=== PATIENT | male | born 1970 | race Caucasian/White ===

== ENCOUNTER 2019-08-31 11:17 | Outpatient (CLI) | payer MEDICARE ==
[~2019-08-31] VITALS: Ht 185.4 cm; Wt 111.8 kg
--- NOTE | ~2019-08-31 | HEMODYNAMI ---
PATIENT:CESAR RETANA MEDICAL RECORD: [id number] : 72 LOCATION:[facility] ADMISSION DATE: 08/31/19 Generatedon:08/31/201916:11 Patient name: CESAR RETANA Patient #: [id number] SSN: [id number] : 1970 Date of study: 08/31/2019 Page: Of Hemodynamic Procedure Report Patient Data Patient Demographics Procedure consent was obtained First Name: CESAR Gender: Male Last Name: MAZIN : 1970 Patient #: [id number] Age: 49 year(s) Race: Unknown SSN: [id number] Additional ID: [id number] Contact details Address: [address] [place] [address] [place] State: [place] City: [place] Zip code: [address] Past Medical History Allergies: No known allergies Admission Admission Data Admission Date: 08/31/2019 Admission Time: 11:17 Admit Source: Other Height (in.): 72 BSA: 2.34 (m2) Height (cm.): 182.88 BMI: 33.91 (kg/m2) Weight (lbs.): 250 Weight (kg.): 113.4 Lab Results Lab Result Date: 08/31/2019 Lab Result Time: 0:00 Biochemistry Name Units Result Min Max BUN mg/dl 10 --(-*--)-- 7 18 Creatinine mg/dl 1 --(--*-)-- 0.6 1.3 CBC Name Units Result Min Max Hemoglobin g/dl 16.1 --(--*-)-- 13.5 17.5 Procedure Procedure Types Cath Procedure Diagnostic Procedure C [facility] w/Coronaries Sedation Charges Moderate Sedation up to 15 minutes Procedure Description Procedure Date Procedure Date: 08/31/2019 Procedure Start Time: 15:48 Procedure End Time: 16:09 Procedure Staff Name Function Shade Bo MD Performing Physician Tessa Cabello RT Monitor April Arnold RN Nurse Yancy Hodge RT Scrub Procedure Data Cath Procedure Fluoroscopy Diagnostic fluoroscopy Total fluoroscopy Time: 7.3 time: 7.3 min min Diagnostic fluoroscopy Total fluoroscopy dose: dose: 1010 mGy 1010 mGy Contrast Material Contrast Material Type Amount (ml) Isovue 300 94 Entry Location Entry Primary Successful Side Size Upsize Upsize Entry Closure Carroll ccessful Closure Location (Fr) 1 (Fr) 2 (Fr) Remarks Device Remarks Radial Right 6 Fr Mechanical artery Short Compression Estimated blood loss: 5 ml Diagnostic catheters Device Type Used For End Catheter Placement DIAGNOSTIC Thatcher 110cm 5 Procedure Fr catheter ([id number]) DIAGNOSTIC Checo 110cm 5Fr catheter ([id number]) Procedure Complications No complications Procedure Medications Medication Administration Route Dosage 0.9% NaCl I.V. 100 ml/hr Oxygen etCO2 Nasal cannula 2 l/min Lidocaine 2% added to field 20 Heparin Flush Bag added to field 2 bags (1000units/500ml NS) Radial Cocktail added to field 1 syringe (Verapamil 2mg/Nitro 400mcg/Heparin 1500units) Versed I.V. 2 mg Fentanyl I.V. 100 mcg Versed I.V. 2 mg Hemodynamics Rest BSA: 2.34 (m2) O2 Consumption: Estimated: 291.06 (ml/min) O2 Consumption indexed : Estimated:124.38 (ml/min/m) Heart Rate: 81 (bpm) Pressure Samples Time Site Value (mmHg) Purpose Heart Use Rate(bpm) 15:53 LV 126/-6,6 Snapshot 81 15:54 LV 119/28,22 Snapshot 86 Gradients Valve Time Site Site Mean SEP/DFP Peak To Heart Use 1 2 (mmHg) (sec/min) Peak Rate (mmHg) (bpm) Aortic 15:54 LV AO 89 Snapshots Pre Cath Intra NCS Post Cath Vital Signs Time Heart Resp SPO2 etCO2 NIBP (mmHg) Rhythm Pain Sedation Rate (ipm) (%) (mmHg) Status Level (bpm) 15:35:02 77 12 98 12 129/87(104) NSR 0 (11) 10(A) , No pain 15:39:10 76 16 96 27.8 127/90(108) NSR 0 (11) 10(A) , No pain 15:43:20 79 17 98 19 123/80(95) NSR 0 (11) 10(A) , No pain 15:47:25 75 14 97 32.3 123/86(99) NSR 0 (11) 10(A) , No pain 15:51:37 85 16 98 24.8 114/75(97) NSR 0 (11) 10(A) , No pain 15:55:45 79 15 98 32.3 123/71(89) NSR 0 (11) 9(A) , No pain 15:59:53 82 17 97 21 113/77(97) NSR 0 (11) 9(A) , No pain 16:04:01 78 15 97 33.1 118/68(90) NSR 0 (11) 10(A) , No pain 16:08:07 76 15 91 30.8 122/78(97) NSR 0 (11) 10(A) , No pain Medications Time Medication Route Dose Verified Delivered Reason Notes E ffectiveness by by 15:34:10 0.9% NaCl I.V. 100 [place]ade April used for ml/hr Anupam Arnold head grinder 15:34:16 Oxygen etCO2 2 l/min Shade April used for Nasal Anupam Arnold procedure cannula RN 15:34:21 Lidocaine 2% added 20ml [place] for local to vial Anupam oB MD anesthetic field 15:34:26 Heparin Flush added 2 bags [place] used for Bag to Anupam Bo MD procedure (1000units/500ml field NS) 15:34:31 Radial Cocktail added 1 [place] used for (Verapamil to syringe Anupam Bo MD procedure 2mg/Nitro field 400mcg/Heparin 1500units) 15:47:13 Versed I.V. 2 mg [place] for Anupam Arnold sedation RN 15:47:27 Fentanyl I.V. 100 mcg [place] for Anupam Arnold sedation RN 15:52:24 Versed I.V. 2 mg [place] for Anupam Arnold sedation director of employer services Log Time Note 15:25:48 Informed consent obtained and on chart 15:26:58 Admit Source: Other 15:27:05 Patient Height : 72 inches 15:27:11 Patient Weight : 250 lbs 15:28:23 Lab Result : Creatinine 1 mg/dl 15:28:23 Lab Result : BUN 10 mg/dl 15:28:23 Lab Result : Hemoglobin 16.1 g/dl 15:29:18 Procedure Status Elective Heart Cath (OP). 15:29:21 April Arnold RN sent for patient. Start room use. 15:29:36 Time tracking: Regular hours (M-F 7:00 - 5:00) 15:29:41 Plan of Care:Hemodynamics will remain stable., Cardiac rhythm will remain stable., Comfort level will be maintained., Respiratory function will remain adequate., Patient/ family verbilizes understanding of procedure., Procedure tolerated without complication., Recovers from procedure without complications.. 15:29:46 Patient received from Pre/Post Procedure Room to CCL 2 Alert and oriented. Tansferred to table in Supine position. 15:29:48 Warm blankets applied, and saba hugger turned on for patient comfort. 15:29:49 Correct patient and procedure confirmed by team. 15:29:50 ECG and BP/O2 sat monitors applied to patient. 15:30:35 H&P Date Dictated: 08/02/2019 Within 30 days and on chart., H&P Addendum completed by physician on day of procedure. (MUST COMPLETE FOR ALL OUTPATIENTS). 15:30:38 Family in waiting room. 15:30:39 Patient NPO since Midnight. 15:30:46 Patient allergic to No known allergies 15:30:50 Is the patient allergic to Iodine/contrast media? No. 15:30:54 Was the patient premedicated? Yes 15:30:56 Is patient on blood thinner?No 15:31:01 Patient diabetic? No. 15:31:08 Snore? Yes 15:31:09 Sleep apnea? Yes 15:31:17 Dentures? No ? 15:31:35 Patient pain scale 0/10 ?. 15:31:45 IV patent on arrival in left forearm with 0.9% NaCl at KVO. 15:31:51 Lab results completed and on chart. 15:31:55 Right groin area was prepped with chlora-prep and draped in sterile fashion 15:31:56 Alarms reviewed by R. N. 15:31:57 Sharps counted by scrub and verified by R.N. 15:31:58 Physician paged 15:33:59 Vital chart was started 15:34:10 0.9% NaCl 100 ml/hr I.V. was administered by April Clayton RN; used for procedure; Verbal order read back and verified. 15:34:16 Oxygen 2 l/min etCO2 Nasal cannula was administered by April Arnold RN; used for procedure; Verbal order read back and verified. 15:34:21 Lidocaine 2% 20ml vial added to field was administered by Shade Bo MD; for local anesthetic; Verbal order read back and verified. 15:34:26 Heparin Flush Bag (1000units/500ml NS) 2 bags added to field was administered by Shade Bo MD; used for procedure; Verbal order read back and verified. 15:34:31 Radial Cocktail (Verapamil 2mg/Nitro 400mcg/Heparin 1500units) 1 syringe added to field was administered by Shade Bo MD; used for procedure; Verbal order read back and verified. 15:42:33 Physician arrived 15:42:33 --------ALL STOP TIME OUT------ 15:46:38 Final Timeout: patient, procedure, and site verified with staff and physician. All members of the team are in agreement. 15:46:40 Right Radial & Right Groin site verified by team. 15:46:44 Fire Safety Assessment: A--An alcohol-based skin anteseptic being used preoperatively., C--Open oxygen or nitrous oxide is being used., D--An ESU, laser, or fiber-optic light is being used. 15:46:48 Physical assessment completed. ASA score P 3 - A patient with severe systemic disease as per Shade Bo MD. 15:47:00 2) 60-89 Mildly reduced kidney function, and other findings (as for stage 1) point to kidney disease. 15:47:13 Versed 2 mg I.V. was administered by April Arnold RN; for sedation; Verbal order read back and verified. 15:47:27 Fentanyl 100 mcg I.V. was administered by April Arnold RN; for sedation; Verbal order read back and verified. 15:47:32 Maximum allowable contrast dose (3.7 X eGFR X 0.75)235 ml. 15:47:37 Sedation plan: IV Moderate Sedation Medication:Versed, Fentanyl 15:47:41 Procedure started. 15:47:42 Full Disclosure recording started 15:48:31 Local anesthetic to right radial artery with Lidocaine 2% by Shade Bo MD.INITIAL ACCESS ONLY 15:50:29 A 6 Fr Short sheath was inserted into the Right Radial artery 15:51:19 Use device set Radial Dx or PCI 15:51:22 Medline Cath Pack ([id number]) opened to sterile field. 15:51:23 Bag Decanter (2002) opened to sterile field. 15:51:23 ACIST Hand Control (98691) opened to sterile field. 15:51:28 A DIAGNOSTIC Thatcher 110cm 5 Fr catheter (108151) was advanced over the wire and used for Procedure. 15:51:32 ACIST Syringe (26423) opened to sterile field. 15:51:32 ACIST Manifold (83853) opened to sterile field. 15:51:35 Tegaderm 4 x 4 (1626W) opened to sterile field. 15:51:36 MBrace Wrist Support ([id number]) opened to sterile field. 15:51:37 NEEDLE Cook 21G 4cm Radial (G51167) opened to sterile field. 15:51:40 EMERAircraft Logs Guide Wire (964-811) opened to sterile field. 15:51:43 SHEATH 6FR RAIN (3969165) opened to sterile field. 15:51:51 LV angiography performed. 15:52:24 Versed 2 mg I.V. was administered by April Arnold RN; for sedation; Verbal order read back and verified. 15:54:07 EF : 55 % 15:56:10 A DIAGNOSTIC Checo 110cm 5Fr catheter (340878) was advanced over the wire and used for . 15:58:21 RCA angiography performed. 15:58:32 ACCDominant side:Left 16:00:20 Catheter removed. 16:00:29 GUIDE 5FR EBU 3.5 catheter ([id number]) opened to sterile field. 16:00:35 LCA angiography performed. 16:05:34 Catheter removed. 16:06:24 ZEPHYR REGULAR TR BAND (504790) opened to sterile field. 16:06:39 Sheath removed intact; hemostasis achieved with Mechanical Compression to the Right Radial artery. 16:06:42 Procedure ended.(Physican Out) 16:07:09 Fluoroscopy time 07.30 minutes. 16:07:13 Fluoroscopy dose: 1010 mGy 16:07:13 Flurop Dose total: 1010 16:07:19 Dose Area Product 59270 mGy/cm. 16:07:24 Contrast amount:Isovue 300 94ml. 16:07:27 Maximum allowable dose exceeded? No. 16:07:28 Sharps counted by scrub and verified by R.N. 16:07:33 Monument band inflated with 8cc of air. 16:07:38 Post-op/insertion site Right Radial artery dressed using a 4 x 4 and Tegaderm. 16:08:10 Post Procedure Pulses reassessed and unchanged 16:08:20 Post-procedure physical assessment completed. ASA score P 2 - A patient with mild systemic disease as per Shade Bo MD. 16:08:23 Post procedure rhythm: unchanged. 16:08:26 Estimated blood loss: 5 ml 16:08:28 Post procedure instruction explained to patient.Patient verbalizes understanding. 16:08:39 Procedure type changed to Cath procedure, Diagnostic procedure, LHC, LHC w/Coronaries, Sedation Charges, Moderate Sedation up to 15 minutes 16:08:42 Procedure and supply charges have been captured, reviewed, submitted and are correct. 16:08:48 Procedure Complication : No complications 16:08:53 Vital chart was stopped 16:09:30 [facility] Findings: mild to moderate CAD (<70%) 16:09:33 Operative report dictated upon procedure completion. 16:09:33 See physician's report for complete and final results. 16:09:36 Report given to Pre/Post Procedure Room. 16:09:41 Patient transfered to Pre/Post Procedure Room with Stretcher. 16:09:43 Procedure ended. 16:09:43 Full Disclosure recording stopped 16:09:50 End room use (Document Last) 16:10:06 End room use (Document Last) 16:10:39 End room use (Document Last) Device Usage Item Name Manufacture Quantity Catalog Hospital Part Current Minima l Lot# / Number Charge Number Stock Stock Serial# Code Medline Medline 1 [id number] 51332 103025 5 Cath Pack ([id number]) Bag Microtek 1 344662 88171 272316 5 DecDolphin [employer] Inc. () ACIST Hand Acist 1 89390 202287 429327 210835 5 [facility] (64791) Systems Inc DIAGNOSTIC Terumo 2 20-3125 428992 880002 899536 5 Checo 110cm 5Fr catheter (944706) ACIST Acist 1 81594 934019 436117 360633 20 Syringe Medical (06695) Systems Inc ACIST Acist 1 40031 071843 476010 614754 5 Manifold Medical (78829) Systems Inc Tegaderm 4 3M 1 1626W 793668 055046 706271 5 x 4 (1626W) MBrace Advanced 1 140-0250-00 106838 55057 851627 5 Wrist Vascular Support Dynamics ([id number]) NEEDLE Cook Cook Medical 1 [id number] 717210 737220 953227 5 21G 4cm Radial (L87255) EMERALD Cardinal 1 772-388 569289 755920 292777 5 Guide [facility] (543-894) SHEATH 6FR Cardinal 1 [id number] 757770 8582521 033323 5 [facility] (6592420) DIAGNOSTIC Terumo 2 40-2153 348450 456801 843189 5 Thatcher 110cm 5 Fr catheter (576183) GUIDE 5FR Medtronic 1 [id number] 981077 936813 339542 1 EBU 3.5 catheter ([id number]) ZEPHYR Cardinal 1 228249 367985 0391933 755127 5 REGULAR TR Health BAND (908019) Signature Audit [place] Stage Time Signature Unsigned Intra-Procedure 08/31/2019 Tessa Cabello 4:10:06 PM RT(R) Intra-Procedure 08/31/2019 April Arnold 4:10:39 PM RN Intra-Procedure 08/31/2019 Shade Bo MD 4:11:24 PM Signatures Performing Physician : Signature : Shade Bo MD Date : Time : Monitor : Tessa Cabello Signature : RT Date : Time : Nurse : April Arnold RN Signature : Date : Time : [facility] [address] [place] [address]
[2019-08-31] MEDS ORDERED: ALBUTEROL SULF8.5 GM INH (12:19)
[2019-08-31] MEDS ORDERED: LEVOXYL25 MCG PO (12:19)
[2019-08-31] MEDS ORDERED: LYRICA300 MG PO (12:20)
[2019-08-31] MEDS ORDERED: ADALAT CC90 MG PO (12:20)
[2019-08-31] MEDS ORDERED: SOMA350 MG PO (12:20)
[2019-08-31] MEDS ORDERED: FOLIC ACID1 MG PO (12:20)
[2019-08-31] MEDS ORDERED: SINGULAIR10 MG PO (12:21)
[2019-08-31] MEDS ORDERED: OMEGA-3100 MG PO (12:21)
[2019-08-31] MEDS ORDERED: ROPINIROLE HCL0.5 MG PO (12:21)
[2019-08-31] MEDS ORDERED: BREO ELLIPTA 21 EACH (12:22)
[2019-08-31] MEDS ORDERED: VITAMIN D2000 UNIT PO (12:22)
[2019-08-31] MEDS ORDERED: SPIRIVA RESPIMAT4 G1 INH (12:22)
[2019-08-31 12:42] LABS: BASOPHILS 1.1 % (0-2); EOSINOPHILS 1.4 % (0-7); HEMATOCRIT 47.8 % (42.0-54.0); HEMOGLOBIN 16.1 g/dL (13.5-17.5); IMMATURE GRANULOCYTES 0.2 % (0-5); LYMPHOCYTES 30.7 % (15-50); MCHC 33.7 g/dL (31.0-37.0); MCV 92.1 fL (80.0-100.0); MEAN PLATELET VOLUME 10.3 fL (7.4-10.4); MONOCYTES 16.3 % (2-11); NEUTROPHILS 50.3 % (40-80); PLATELET COUNT 263 10x3/uL (130-400); RBC 5.19 10x6/uL (4.20-6.10); RDW 13.6 % (11.5-14.5); WBC 6.5 10x3/uL (4.8-10.8)
[2019-08-31 12:45] VITALS: BP 129/90; Ht 185.4 cm; Wt 111.8 kg
[2019-08-31 12:57] LABS: ALT (SGPT) 18 U/L (10-68); CALC OSMOLALITY 285 mosm/kg (275-300); CALCIUM 8.6 mg/dL (8.5-10.1); CARBON DIOXIDE 31.2 mmol/L (21.0-32.0); CHLORIDE - SERUM 106 mmol/L (98-107); CHOL - HDL RATIO 5.2 ratio (2.3-4.9); CHOLESTEROL, TOTAL 229 mg/dL (0-200); GLUCOSE 90 mg/dL (74-106); HDL CHOLESTEROL 44 mg/dL (32-96); LDL CHOLESTEROL 141 mg/dL (0-100); LDL-HDL RATIO 3.2 ratio (1.5-3.5); POTASSIUM - SERUM 3.3 mmol/L (3.5-5.1); SODIUM 144 mmol/L (136-145); TRIGLYCERIDE 224 mg/dL (30-200); UREA NITROGEN 10 mg/dL (7-18); eGFR NON AFRICAN AMERICAN 85 mL/min (90-120)
--- NOTE | 2019-08-31 16:42 | NUR ---
PT SITTING UP IN BED, VISITING WITH FAMILY AT BEDSIDE. Z BAND IS CDI, FINGERS WARM AND CAP REFILL IS BRISK. PULSES PALPABLE. PT SIPPING ON COLA, STATES DOES NOT WANT SANDWICH AT THIS TIME. VSS.
--- NOTE | 2019-08-31 17:08 | NUR ---
1700 PT HAS MILLI SODA WITH NO C/O NAUSEA. Z BAND CDI, RADIAL PULSE PALPABLE. PT IS ALERT AND DENIES ANY C/O. NSR, RATE 64, BP IS 109/75.
--- NOTE | 2019-08-31 17:43 | NUR ---
1720 PT IS ALERT, DENIES ANY C/O. Z BAND IS CDI, FINGERS WARM AND RADIAL PULSE PALPABLE. PT DENIES ANY NV DEFICIT TO HAND. 1735 3 CC OF AIR WEANED FROM Z BAND WITH NO BLEEDING NOTED. FINGERS WARM AND CAP REFILL IS BRISK. RADIAL PULSE PALPABLE.
--- NOTE | 2019-08-31 17:54 | NUR ---
3 CC OF AIR WEANED FROM Z BAND WITH NO BLEEDING NOTED AT SITE. PULSES PALPABLE. PT IS ALERT AND DENIES ANY NV DEFICIT TO HAND.
--- NOTE | 2019-08-31 19:25 | NUR ---
1810 ALL REMAINING AIR WEANED FROM Z BAND WITH NO BLEEDING NOTED. FINGERS WARM, PULSES PALPABLE. PT IS ALERT AND DENIES ANY C/O. Z BAND REMOVED AND 2X2, TEGADERM PLACED TO SITE. 1820 DRESSING REMAINS CDI RIGHT WRIST, WRIST IMMOBILIZER IN PLACE. PT IS ALERT AND DENIES ANY C/O. IV DC'D WITH CATH INTACT AND PT IS DRESSING FOR DC TO HOME. DC INSTRUCTIONS HAVE BEEN REVIEWED WITH PT AND WHO VERBALIZE UNDERSTANDING. 1830 PT HAS AMBULATED TO THE BATHROOM AND VOIDED QS. DENIES ANY C/O. PT ESCORTED TO PRIVATE AUTO VIA WC BY NURSE WITH DRIVING HIM HOME. PT HAS ALL PERSONAL BELONGINGS AND DISCHARGE INSTRUCTIONS.
== END 2019-08-31 18:30 | disposition home or self-care (01) ==
LOC: D.CATH 11:17
PROVIDERS: ATTEND Internal Medicine Cardiovascular Disease
DX: I20.0 Unstable angina (principal); R94.30 Abnormal result of cardiovascular function study, unspecified

== ENCOUNTER → 2019-09-01 07:47 | Outpatient (CLI) | payer MEDICARE ==
[2019-08-31 12:45] VITALS: BMI 32.5
[~2019-09-01 07:47] MED LIST: ADALAT CC90 MG PO; ALBUTEROL SULF8.5 GM INH; BREO ELLIPTA 21 EACH; FOLIC ACID1 MG PO; LEVOXYL25 MCG PO; LYRICA300 MG PO; OMEGA-3100 MG PO; ROPINIROLE HCL0.5 MG PO; SINGULAIR10 MG PO; SOMA350 MG PO; SPIRIVA RESPIMAT4 G1 INH; VITAMIN D2000 UNIT PO
== END | disposition home or self-care (01) ==
LOC: D.US 07:47
PROVIDERS: ATTEND Internal Medicine Gastroenterology
DX: R10.13 Epigastric pain (principal); K21.9 Gastro-esophageal reflux disease without esophagitis; R05 Cough

== ENCOUNTER → 2020-01-05 07:37 | Outpatient (CLI) | payer MEDICARE ==
[2019-08-31 12:45] VITALS: BMI 32.5
== END | disposition home or self-care (01) ==
LOC: D.NM 07:37
PROVIDERS: ATTEND Internal Medicine Gastroenterology
DX: R10.13 Epigastric pain (principal)

== ENCOUNTER → 2020-01-11 10:30 | Outpatient (CLI) | payer MEDICARE ==
[2019-08-31 12:45] VITALS: BMI 32.5
== END | disposition home or self-care (01) ==
LOC: D.NM 01-09 09:30
PROVIDERS: ATTEND Internal Medicine Gastroenterology
DX: R10.13 Epigastric pain (principal)

== ENCOUNTER 2020-03-28 07:11 | Outpatient (CLI) | payer MEDICARE ==
[2019-08-31 12:45] VITALS: BMI 32.5
[2020-03-28 10:38] LABS: ALBUMIN 3.8 g/dL (3.4-5.0); BILIRUBIN - DIRECT 0.15 mg/dL (0.00-0.30); BILIRUBIN - INDIRECT 0.45 mg/dL (0.00-1.00); BILIRUBIN - TOTAL 0.6 mg/dL (0.2-1.3); PROTEIN - SERUM 7.4 g/dL (6.4-8.2)
--- NOTE | 2020-03-28 11:02 | NUR ---
0922 MANOMETRY COMPLETED. TOLERATED WELL. TAKEN TO RADIOLOGY FOR NEXT TEST. VOICES NO NEEDS. NO S/S OF ACUTE DISTRESS NOTED.
== END 2020-03-28 09:22 | disposition home or self-care (01) ==
LOC: D.OPS 07:11 → D.US 07:11 → D.OPS 09:22 → D.US 09:30
PROVIDERS: ATTEND Internal Medicine Gastroenterology
DX: K76.0 Fatty (change of) liver, not elsewhere classified (principal); K44.9 Diaphragmatic hernia without obstruction or gangrene

== ENCOUNTER → 2021-02-18 07:48 | Outpatient (CLI) | payer MEDICARE ==
[2021-02-18 08:34] LABS: ALBUMIN 3.7 g/dL (3.4-5.0); BILIRUBIN - DIRECT 0.11 mg/dL (0.00-0.30); BILIRUBIN - INDIRECT 0.41 mg/dL (0.00-1.00); BILIRUBIN - TOTAL 0.52 mg/dL (0.2-1.3); PROTEIN - SERUM 6.8 g/dL (6.4-8.2)
== END | disposition home or self-care (01) ==
LOC: D.US 07:48
PROVIDERS: Internal Medicine Gastroenterology
DX: R13.10 Dysphagia, unspecified (principal); K21.9 Gastro-esophageal reflux disease without esophagitis; K76.0 Fatty (change of) liver, not elsewhere classified